=== PATIENT | male | born 1965 | race Caucasian/White ===

== ENCOUNTER 2024-10-09 10:26 | Emergency (ER) | payer OTHER, SELFPAY ==
[2024-10-09 10:30] VITALS: BP 144/86
--- NOTE | 2024-10-09 11:13 | ED.GENMED ---
History of Present Illness
General
Chief Complaint: Musculo-Skeletal Complaint
Source: patient
Exam Limitations: none
Time Seen by Provider: 10/09/24 11:00
Nursing documentation reviewed up to this point in time: agreed with
History of Present Illness
History of Present Illness:
Patient is a healthy 59-year-old male who presents to the emergency department with right foot injury. Patient states he was playing softball last night when he injured his foot running out of the batter's box. He states he noticed pain as he got
to first base. He was able to complete the rest of the game however has had worsening pain since last night. He has been able to ambulate and weight-bear with discomfort.
Today he noticed swelling and bruising of his right foot, most focally around his great toe prompting visit to the emergency department. He denies any numbness/tingling in foot or toes. No pain in right ankle or right knee.
No other concerns today.
Review of Systems
Review of Systems
Allergies reviewed?: Yes
All Other Systems: ROS reviewed and negative except as documented in HPI and ROS
Phy Exam
Physical Exam
Physical Exam:
Vitals: Mildly hypertensive, otherwise vital signs stable. Afebrile
General: Patient is well appearing, no acute distress
Skin: Warm and dry, no rashes or lesions
Head: Normocephalic, atraumatic
Throat: Protecting airway
Neck: Normal ROM, no cervical spine tenderness
Cardiac: Regular rate
Pulm: No apparent respiratory distress
Abdomen: Nondistended
Extremities: Diffuse edema and ecchymoses of right medial foot at base of right first toe. Ecchymoses and tenderness most prominent near right MTP joint on sole. He has full range of motion in right digits, right ankle, and right knee without
pain. No tenderness of right midfoot, hindfoot, base of right fifth metatarsal. No tenderness of right medial/lateral malleolus. Achilles intact. No calcaneal tenderness. Plus palpable right DP pulse with normal capillary refill
Neuro: Grossly intact
Psychiatric: Normal affect.
Course
Orders/Labs/Results
Orders:
Orders
10/09/24 10:32
Foot, Right 3 View [CR Foot - Right Min 3 Views] Urgent
Comment:
Reason For Exam: softball injury
10/09/24 11:13
Acetaminophen [Tylenol] 650 mg PO NOW STA
Vital Signs
Initial and Last Documented VS:
Initial Vital Signs
Temp Pulse Resp BP Pulse Ox
97.8 F 70 18 144/86 97
10/09/24 10:30 10/09/24 10:30 10/09/24 10:30 10/09/24 10:30 10/09/24 10:30
Last Documented Vital Signs
Temp Pulse Resp BP Pulse Ox
97.8 F 70 18 144/86 97
10/09/24 10:30 10/09/24 10:30 10/09/24 10:30 10/09/24 10:30 10/09/24 11:20
MDM/Problems Addressed
Differential Diagnosis Includes:
Not limited to: Foot sprain, foot fracture, contusion, ligamentous injury, gout, osteoarthritis, etc.
MDM/Problems Addressed:
59-year-old male presents with left foot pain after injury occurring while playing softball last night. He has been able to ambulate and bear weight with some discomfort. Vitals and physical exam as above. There is edema and ecchymosis seen at the
lateral aspect of the left sole near the base of the left great toe. No obvious deformity. No bony tenderness of left mid foot, hind foot, ankle or knee. Left foot neurovascular intact.
An x-ray was obtained of the left foot which shows no evidence of acute fracture. Given inciting injury � suspect likely ligaments injury verse contusion. Recommended hard soul cast shoe for support however patient declines and states he would
rather wear his own shoes. Will place yordy wrap. Advised supportive footwear and follow-up with primary care/orthopedics as needed. Discuss rest, ice, elevation. Patient comfortable with plan. Stable for discharge home.
Chronic conditions affecting care:
N/A
Acute Exacerbation and/or Progression of Chronic Illness:
N/A
*Radiology
Radiology exam reviewed: preliminary read by ED provider (Foot x-ray reviewed by me-no acute fracture) and radiology read reviewed
*Pulse Oximetry
SaO2: 97
Oxygen Mode of Delivery: Room air
Patient hypoxic: no
*EKG
Interpreted by ED Provider?: NA
*Upfitter Interpretation
Rate: Upfitter- N/A
*Critical Care Note
Total Time (30-74mins, 75-104mins- exclusive of procedures): Not Applicable
ED Attending Note
-
Portions of this chart may have been created with voice recognition software.� Occasional wrong word or��sound alike� substitutions may have occurred due to the inherent limitations of voice recognition software.
Discharge Plan
Departure
Patient Disposition: Home (Routine Discharge)
Date of Disposition: 10/09/24
Time of Disposition: 11:27
Patient with high blood pressure during this ER visit?: Yes
Condition: Good
Discharge Problem:
Right foot injury
Instructions: Contusion (DC), BLOOD PRESSURE
Referrals:
Spencer Kilgore MD [Active, Orthopedics] - As needed
Activity Restrictions/Additional Instructions:
RETURN TO THE EMERGENCY DEPARTMENT ANY INTRACTABLE PAIN, SIGNIFICANT WORSENING IN PAIN, SWELLING, OR BRUISING OF RIGHT FOOT, NUMBNESS/TINGLING IN FOOT/TOES, FEVERS, DIFFICULTY AMBULATING, OR ANY OTHER CONCERNS
- As discussed�your x-ray showed no evidence of fracture of your right foot. You may have sustained a sprain or a contusion to your right foot/big toe.
- Please continue to wrap your foot with an Yordy wrap and wear hard soled/supportive shoes. Continue to ice, elevate right foot. Take Tylenol and/or Motrin as needed for pain
- Avoid physical activity/weightbearing support for the next 1 to 2 weeks until symptoms begin to improve.
- Follow-up with orthopedics for further evaluation/management as needed. Contact information has been provided for you above for [facility].
Monitor your symptoms closely and return to the emergency department with any acute worsening/new symptoms or any other concerns
Interventions
Interventions:
*Risk Screen - Suicide Last Done: 10/09/24 10:32
*General Assessment Last Done: 10/09/24 10:32
*Neglect/Abuse Screening Last Done: 10/09/24 10:32
*ED- Fall Risk Assessment Last Done: 10/09/24 11:30
*ED COVID-19 Vaccine History Last Done: 10/09/24 10:32
*Nursing Disposition Last Done: 10/09/24 11:47
ED-Musculoskeletal Assessment Last Done: 10/09/24 11:12
Discharge Date and Time
Discharge Date/Time: 10/09/24 11:40
Print Language: UPPER SORBIAN
[2024-10-09] MEDS: TYLENOL 650 MG PO (11:17)
== END 2024-10-09 11:40 | disposition home or self-care (01) ==
LOC: EMR 10:26
PROVIDERS: EMERGENCY PHYSICIAN Emergency Medicine; FAMILY PHYSICIAN Family Medicine
DX: S99.921A Unspecified injury of right foot, initial encounter (principal); S90.31XA Contusion of right foot, initial encounter; Y93.64 Activity, baseball
CPT/HCPCS: 99283; 73630